=== PATIENT | male | born 1960 | race Caucasian/White ===

== ENCOUNTER 2017-10-09 20:17 | Inpatient (IN) | payer MEDICARE ==
[~2017-10-09] VITALS: Ht 185.4 cm; Wt 147.2 kg
[2017-10-09 20:42] LABS: BASOPHILS % (AUTO) 0.4 % (0.0-5.0); EOSINOPHILS % (AUTO) 0.5 % (0.0-8.0); HEMATOCRIT 35.8 % (42-54); LYMPHOCYTES % (AUTO) 7.2 % (21.0-51.0); MEAN CORPUSCULAR HEMOGLOBIN 35.1 pg (27.0-33.0); MEAN CORPUSCULAR HGB CONC 33.6 g/dL (32.0-36.0); MEAN CORPUSCULAR VOLUME 104.5 fL (79-99); MONOCYTES % (AUTO) 9.9 % (3.0-13.0); NUCLEATED RED BLOOD CELLS 0.3 % (0.0-0.19); PLATELET COUNT (AUTO) 158 K/uL (130-400); RED BLOOD CELL COUNT(AUTO) 3.43 MIL/uL (4.50-6.20); RED CELL DISTRIBUTION WIDTH 15.2 % (11.0-15.5)
[2017-10-09 21:02] LABS: INR 0.89 (0.85-1.15); PARTIAL THROMBOPLASTIN TIME 22.1 SEC (26.3-35.5); PROTHROMBIN TIME 9.4 SEC (9.6-11.6)
[2017-10-09] MEDS ORDERED: ZOSYN 3.375GM+NS 50ML 50 ML IV ONE (21:04)
[2017-10-09] MEDS ORDERED: SODIUM CHLORIDE 0.9% 1000ML 1,000 ML IV ONE (21:04)
[2017-10-09 21:14] LABS: ALBUMIN 3.2 g/dL (3.5-5.0); BILIRUBIN,TOTAL 0.2 mg/dL (0.2-1.0); CREATININE 2.4 mg/dL (0.5-1.5); POTASSIUM 4.8 mmol/L (3.5-5.1); TOTAL PROTEIN, SERUM 6.6 g/dL (6.0-8.3)
[2017-10-09 23:03] LABS: APPEARANCE,URINE Clear (CLEAR); BILIRUBIN,URINE Negative (NEGATIVE); COLOR,URINE Yellow (YELLOW); GLUCOSE, URINE (UA) >=1000 mg/dL (NEGATIVE); KETONES,URINE Negative (NEGATIVE); LEUKOCYTE ESTERASE ,URINE Negative (NEGATIVE); NITRATE,URINE Negative (NEGATIVE); OCCULT BLOOD,URINE Negative (NEGATIVE); PROTEIN,URINE Trace (NEGATIVE); UROBILINOGEN,URINE 0.2 mg/dL (0.2-1.0)
[2017-10-09] MEDS ORDERED: INSULIN HUMULIN R 100 UNIT/ML 3ML ONE (23:06)
[2017-10-09 23:12] LABS: BACTERIA,URINE Many /HPF (None Seen); RBC,URINE None Seen /HPF (0-1); SQUAMOUS EPITHELIAL CELL,UR Rare /LPF (0-2); WBC,URINE 0-1 /HPF (0-1)
[2017-10-09] MEDS ORDERED: VANCOMYCIN 1GM+NS 250ML 250 ML IV ONE (23:14)
[2017-10-09] MEDS ORDERED: IPRATROPIUM/ALBUTEROL SULFATE 3 ML SOLUTION IH ONE (23:25)
[2017-10-10] MEDS ORDERED: ONDANSETRON HCL 4 MG/2 ML VIAL IV PRN (02:15)
[2017-10-10] MEDS ORDERED: ACETAMINOPHEN-CODEINE 300/30MG TAB PO PRN (02:15)
[2017-10-10] MEDS ORDERED: HYDRALAZINE HCL 20 MG/ML VIAL IV PRN (02:15)
[2017-10-10] MEDS ORDERED: ACETAMINOPHEN 325 MG TAB PO PRN (02:15)
[2017-10-10] MEDS: ZOSYN 3.375GM+NS 50ML 50 ML IV SCH ×4 (05:00→22:12)
[2017-10-10] MEDS ORDERED: ZOSYN 3.375GM+NS 50ML 50 ML IV ONE ×2 (05:31→12:55)
[2017-10-10 06:35] LABS: BASOPHILS % (AUTO) 0.8 % (0.0-5.0); EOSINOPHILS % (AUTO) 0.5 % (0.0-8.0); HEMATOCRIT 32.8 % (42-54); LYMPHOCYTES % (AUTO) 10.9 % (21.0-51.0); MEAN CORPUSCULAR HEMOGLOBIN 34.8 pg (27.0-33.0); MEAN CORPUSCULAR HGB CONC 33.9 g/dL (32.0-36.0); MEAN CORPUSCULAR VOLUME 102.4 fL (79-99); MONOCYTES % (AUTO) 10.3 % (3.0-13.0); NEUTROPHILS % (AUTO) 77.5 % (40.0-77.0); NUCLEATED RED BLOOD CELLS 0.1 % (0.0-0.19); PLATELET COUNT (AUTO) 141 K/uL (130-400); RED CELL DISTRIBUTION WIDTH 14.7 % (11.0-15.5); WHITE BLOOD COUNT (AUTO) 10.8 K/uL (4.8-10.8)
[2017-10-10 06:42] LABS: CREATININE 2.1 mg/dL (0.5-1.5); POTASSIUM 4.1 mmol/L (3.5-5.1)
[2017-10-10] MEDS ORDERED: IPRATROPIUM/ALBUTEROL SULFATE 3 ML SOLUTION IH ONE ×3 (07:48→13:31)
[2017-10-10] MEDS: IPRATROPIUM/ALBUTEROL SULFATE 3 ML SOLUTION IH SCH ×5 (07:49→22:11)
[2017-10-10] MEDS ORDERED: PANTOPRAZOLE SODIUM 40 MG TABLET.DR PO ONE (08:24)
[2017-10-10] MEDS ORDERED: INSULIN HUMULIN R 100 UNIT/ML 3ML ONE (08:26)
[2017-10-10] MEDS: PANTOPRAZOLE SODIUM 40 MG TABLET.DR PO SCH (09:00)
[2017-10-10] MEDS: INSULIN LISPRO 100 UNIT/ML 3ML SQ SCH ×4 (11:30→21:16)
[2017-10-10] MEDS ORDERED: ACETAMINOPHEN 325 MG TAB ONE (12:43)
[2017-10-10] MEDS ORDERED: ENOXAPARIN SODIUM 40 MG/0.4 ML SYRINGE SQ ONE (18:11)
[2017-10-10] MEDS ORDERED: ENOXAPARIN SODIUM 40 MG/0.4 ML SYRINGE SQ SCH (19:57)
[2017-10-10] MEDS ORDERED: VANCOMYCIN PROTOCOL PER PHARMACY IV SCH (20:00)
[2017-10-10] MEDS ORDERED: COMPOUND IV REFRIGERATED 1 EACH IVSOLN MISC PRN (20:30)
[2017-10-10 20:33] VITALS: BP 138/70
[2017-10-10] MEDS: VANCOMYCIN 1.75 GM in SODIUM CHLORIDE 0.9% 250 ML IV SCH (21:16)
[2017-10-11] VITALS (7 sets, daily range): BP systolic 128–165; BP diastolic 62–85
[2017-10-11] MEDS: IPRATROPIUM/ALBUTEROL SULFATE 3 ML SOLUTION IH SCH ×6 (02:11→23:09)
[2017-10-11 03:58] LABS: BASOPHILS % (AUTO) 0.3 % (0.0-5.0); EOSINOPHILS % (AUTO) 0.8 % (0.0-8.0); HEMATOCRIT 33.4 % (42-54); LYMPHOCYTES % (AUTO) 10.2 % (21.0-51.0); MEAN CORPUSCULAR HEMOGLOBIN 36.3 pg (27.0-33.0); MEAN CORPUSCULAR VOLUME 103.9 fL (79-99); MONOCYTES % (AUTO) 12.4 % (3.0-13.0); NEUTROPHILS % (AUTO) 76.3 % (40.0-77.0); NUCLEATED RED BLOOD CELLS 0.1 % (0.0-0.19); PLATELET COUNT (AUTO) 148 K/uL (130-400); RED BLOOD CELL COUNT(AUTO) 3.21 MIL/uL (4.50-6.20); RED CELL DISTRIBUTION WIDTH 15.1 % (11.0-15.5); WHITE BLOOD COUNT (AUTO) 9.2 K/uL (4.8-10.8)
[2017-10-11 04:10] LABS: ALBUMIN 2.9 g/dL (3.5-5.0); BILIRUBIN,TOTAL 0.5 mg/dL (0.2-1.0); CREATININE 2.1 mg/dL (0.5-1.5); POTASSIUM 4.2 mmol/L (3.5-5.1); TOTAL PROTEIN, SERUM 6.2 g/dL (6.0-8.3)
[2017-10-11] MEDS: ZOSYN 3.375GM+NS 50ML 50 ML IV SCH ×3 (04:36→22:21)
[2017-10-11 04:52] LABS: ABG BASE EXCESS 7.5 mmol/L (-2.0-3.0); ABG HCO3 36.6 mmol/L (21.0-28.0); ABG OXYGEN SATURATION 93.5 % (95.0-99.0); ABG PCO2 73 mmHg (35-48)
[2017-10-11] MEDS: INSULIN LISPRO 100 UNIT/ML 3ML SQ SCH ×4 (06:37→22:16)
[2017-10-11] MEDS: PANTOPRAZOLE SODIUM 40 MG TABLET.DR PO SCH (10:55)
[2017-10-11] MEDS: METHYLPREDNISOLONE SOD SUCC 40MG/ML 1ML IVP SCH ×3 (10:55→20:40)
[2017-10-11] MEDS: ENOXAPARIN SODIUM 40 MG/0.4 ML SYRINGE SQ SCH (10:57)
[2017-10-11] MEDS: VANCOMYCIN 1.75 GM in SODIUM CHLORIDE 0.9% 250 ML IV SCH (20:40)
[2017-10-11] MEDS ORDERED: ACET250T3 PO (22:56)
[2017-10-11] MEDS ORDERED: IPRA3AMP4 IH (22:56)
[2017-10-11] MEDS ORDERED: SPIR25TA PO (22:56)
[2017-10-11] MEDS ORDERED: ASPI-555 PO (22:56)
[2017-10-11] MEDS ORDERED: INS7030 SQ (22:56)
[2017-10-11] MEDS ORDERED: PRED10TA3 PO (22:56)
[2017-10-11] MEDS ORDERED: FURO40TA5 PO (22:56)
[2017-10-12 03:00] VITALS: BP 125/55
[2017-10-12] MEDS: METHYLPREDNISOLONE SOD SUCC 40MG/ML 1ML IVP SCH ×3 (03:15→20:27)
[2017-10-12] MEDS: IPRATROPIUM/ALBUTEROL SULFATE 3 ML SOLUTION IH SCH ×6 (03:35→22:34)
[2017-10-12] MEDS: ZOSYN 3.375GM+NS 50ML 50 ML IV SCH ×3 (05:02→21:35)
[2017-10-12] MEDS: INSULIN LISPRO 100 UNIT/ML 3ML SQ SCH ×4 (06:16→20:47)
[2017-10-12 07:00] VITALS: BP 145/75
[2017-10-12] MEDS: PANTOPRAZOLE SODIUM 40 MG TABLET.DR PO SCH (10:22)
[2017-10-12] MEDS: ENOXAPARIN SODIUM 40 MG/0.4 ML SYRINGE SQ SCH (10:26)
[2017-10-12 12:00] VITALS: BP 127/46
[2017-10-12 16:00] VITALS: BP 140/64
[2017-10-12 19:05] VITALS: BP 157/76
[2017-10-12] MEDS: VANCOMYCIN 1.75 GM in SODIUM CHLORIDE 0.9% 250 ML IV SCH (20:26)
[2017-10-12 23:05] VITALS: BP 148/72
[2017-10-13] MEDS: IPRATROPIUM/ALBUTEROL SULFATE 3 ML SOLUTION IH SCH ×6 (02:31→21:29)
[2017-10-13 03:05] VITALS: BP 136/75
[2017-10-13] MEDS: ZOSYN 3.375GM+NS 50ML 50 ML IV SCH (04:13)
[2017-10-13] MEDS: INSULIN LISPRO 100 UNIT/ML 3ML SQ SCH ×4 (06:51→21:34)
[2017-10-13 08:00] VITALS: BP 124/53
[2017-10-13] MEDS: PANTOPRAZOLE SODIUM 40 MG TABLET.DR PO SCH (09:00)
[2017-10-13] MEDS: METHYLPREDNISOLONE SOD SUCC 40MG/ML 1ML IVP SCH ×2 (09:00→21:42)
[2017-10-13] MEDS: ENOXAPARIN SODIUM 40 MG/0.4 ML SYRINGE SQ SCH (09:01)
[2017-10-13 11:00] VITALS: BP 138/65
[2017-10-13] MEDS: FUROSEMIDE 10 MG/ML 2ML VIAL IV SCH (13:09)
[2017-10-13] MEDS: PIPERACILLIN SODIUM/TAZOBACTAM 3.375 GM VIAL IV SCH ×2 (13:09→18:29)
[2017-10-13 16:00] VITALS: BP 133/69
[2017-10-13] MEDS: INSULIN HUMULIN 70/30 100 UNIT/ML 3ML SQ SCH (17:07)
[2017-10-13 19:05] VITALS: BP 142/75
[2017-10-13] MEDS: VANCOMYCIN 1.75 GM in SODIUM CHLORIDE 0.9% 250 ML IV SCH (21:42)
[2017-10-13 23:05] VITALS: BP 153/74
[2017-10-14] MEDS: IPRATROPIUM/ALBUTEROL SULFATE 3 ML SOLUTION IH SCH ×6 (01:45→21:48)
[2017-10-14] MEDS: PIPERACILLIN SODIUM/TAZOBACTAM 3.375 GM VIAL IV SCH ×5 (02:38→23:47)
[2017-10-14] MEDS: FUROSEMIDE 10 MG/ML 2ML VIAL IV SCH ×3 (02:38→23:46)
[2017-10-14 03:05] VITALS: BP 161/95
[2017-10-14 08:00] VITALS: BP 165/52
[2017-10-14] MEDS: INSULIN LISPRO 100 UNIT/ML 3ML SQ SCH ×4 (08:03→20:36)
[2017-10-14] MEDS: INSULIN HUMULIN 70/30 100 UNIT/ML 3ML SQ SCH ×2 (08:07→17:43)
[2017-10-14] MEDS ORDERED: METHYLPREDNISOLONE SOD SUCC 40MG/ML 1ML IVP ONE (10:04)
[2017-10-14] MEDS: SPIRONOLACTONE 25 MG TAB PO SCH (10:10)
[2017-10-14] MEDS: ASPIRIN 81 MG EC TAB PO SCH (10:10)
[2017-10-14] MEDS: METHYLPREDNISOLONE SOD SUCC 40MG/ML 1ML IVP SCH ×2 (10:10→20:18)
[2017-10-14] MEDS: PANTOPRAZOLE SODIUM 40 MG TABLET.DR PO SCH (10:10)
[2017-10-14] MEDS: AcetaZOLAMIDE 250 MG TAB PO SCH (10:10)
[2017-10-14] MEDS: ENOXAPARIN SODIUM 40 MG/0.4 ML SYRINGE SQ SCH (10:11)
[2017-10-14 11:00] VITALS: BP 153/83
[2017-10-14 14:34] LABS: INR 0.95 (0.85-1.15)
[2017-10-14 16:00] VITALS: BP 155/95
[2017-10-14 19:05] VITALS: BP 160/81
[2017-10-14] MEDS: VANCOMYCIN 1.75 GM in SODIUM CHLORIDE 0.9% 250 ML IV SCH (20:18)
[2017-10-14 23:05] VITALS: BP 127/89
[2017-10-15] MEDS: IPRATROPIUM/ALBUTEROL SULFATE 3 ML SOLUTION IH SCH ×4 (01:27→13:39)
[2017-10-15 03:05] VITALS: BP 144/79
[2017-10-15] MEDS: PIPERACILLIN SODIUM/TAZOBACTAM 3.375 GM VIAL IV SCH ×2 (06:00→07:10)
[2017-10-15 07:30] VITALS: BP 141/95
[2017-10-15] MEDS: INSULIN LISPRO 100 UNIT/ML 3ML SQ SCH ×2 (07:55→13:04)
[2017-10-15] MEDS: INSULIN HUMULIN 70/30 100 UNIT/ML 3ML SQ SCH (07:56)
[2017-10-15] MEDS: ENOXAPARIN SODIUM 40 MG/0.4 ML SYRINGE SQ SCH (09:00)
[2017-10-15] MEDS: SPIRONOLACTONE 25 MG TAB PO SCH (09:43)
[2017-10-15] MEDS: AcetaZOLAMIDE 250 MG TAB PO SCH (09:43)
[2017-10-15] MEDS: ASPIRIN 81 MG EC TAB PO SCH (09:43)
[2017-10-15] MEDS: PANTOPRAZOLE SODIUM 40 MG TABLET.DR PO SCH (09:43)
[2017-10-15] MEDS ORDERED: MEROPENEM 1 GM VIAL IVP SCH (10:15)
[2017-10-15 11:00] VITALS: BP 129/70
[2017-10-15 16:00] VITALS: BP 135/74
== END 2017-10-15 18:25 | DRG 871 ==
LOC: EDH 20:17 → EDHIP 22:45 → OBSVTOIN 22:45 → 3CH 10-10 19:23
PROVIDERS: ADMIT Family Medicine; ATTEND Family Medicine
PROC: 5A09357 Assistance with Respiratory Ventilation, Less than 24 Consecutive Hours, Continuous Positive Airway Pressure (ICD-10-PCS; principal; 2017-10-10)
PROC: 5A09357 Assistance with Respiratory Ventilation, Less than 24 Consecutive Hours, Continuous Positive Airway Pressure (ICD-10-PCS; 2017-10-11)
PROC: 5A09357 Assistance with Respiratory Ventilation, Less than 24 Consecutive Hours, Continuous Positive Airway Pressure (ICD-10-PCS; 2017-10-11)
PROC: 5A09357 Assistance with Respiratory Ventilation, Less than 24 Consecutive Hours, Continuous Positive Airway Pressure (ICD-10-PCS; 2017-10-12)
PROC: 5A09357 Assistance with Respiratory Ventilation, Less than 24 Consecutive Hours, Continuous Positive Airway Pressure (ICD-10-PCS; 2017-10-13)
PROC: 5A09357 Assistance with Respiratory Ventilation, Less than 24 Consecutive Hours, Continuous Positive Airway Pressure (ICD-10-PCS; 2017-10-14)
DX: A41.9 Sepsis, unspecified organism (principal); J96.21 Acute and chronic respiratory failure with hypoxia; E11.22 Type 2 diabetes mellitus with diabetic chronic kidney disease; D69.6 Thrombocytopenia, unspecified; C34.90 Malignant neoplasm of unspecified part of unspecified bronchus or lung; E11.65 Type 2 diabetes mellitus with hyperglycemia; I13.0 Hypertensive heart and chronic kidney disease with heart failure and stage 1 through stage 4 chronic kidney disease, or unspecified chronic kidney disease; I50.9 Heart failure, unspecified; J44.1 Chronic obstructive pulmonary disease with (acute) exacerbation; J96.22 Acute and chronic respiratory failure with hypercapnia; L03.115 Cellulitis of right lower limb; L03.116 Cellulitis of left lower limb; Z68.41 Body mass index [BMI] 40.0-44.9, adult; G47.33 Obstructive sleep apnea (adult) (pediatric); Z51.5 Encounter for palliative care; J98.4 Other disorders of lung; D64.9 Anemia, unspecified; R59.0 Localized enlarged lymph nodes; N18.9 Chronic kidney disease, unspecified; R62.7 Adult failure to thrive; Z99.81 Dependence on supplemental oxygen; Z87.891 Personal history of nicotine dependence; Z80.49 Family history of malignant neoplasm of other genital organs; Z80.0 Family history of malignant neoplasm of digestive organs; Z88.1 Allergy status to other antibiotic agents; Z88.7 Allergy status to serum and vaccine; Z91.018 Allergy to other foods; Z79.899 Other long term (current) drug therapy; Z88.2 Allergy status to sulfonamides; Z28.21 Immunization not carried out because of patient refusal
CPT/HCPCS: 36415; 36600; 71045; 80048; 80053; 80202; 81001; 82803; 82947; 82948; 83605; 83880; 84484; 85025; 85610; 85730; 87040; 87070; 93005; 93306; 93970; 94640; 94660; 94664; 97039; 99291; A4218; J0360; J1650; J1815; J1940; J2543; J2920; J3370; J7030